=== PATIENT | female | born 1990 | race Caucasian/White ===

== ENCOUNTER 2019-01-27 18:53 | Outpatient (CLI) | payer OTHER ==
[~2019-01-27] VITALS: Ht 154.9 cm; Wt 89.1 kg
[2019-01-27 19:14] VITALS: Ht 154.9 cm; Wt 89.1 kg
[2019-01-27 19:19] VITALS: BP 118/56; PULSE 90; RESP 18
--- NOTE | 2019-01-27 21:04 | PN ---
Triage Information Date/Time January 27, 2019 Reason for visit: DFM Weeks of Gestation 38w 5d /Para 4/3 Diabetes: none Hypertention: none Additional information PMHx: none. PSHx: none. POBHx: x 3. NKDA. Objective Vital Signs Date Temp Pulse Resp B/P (MAP) Pulse Ox O2 O2 Flow FiO2 Time Delivery Rate 01/27/19 98.0 90 18 118/56 Room Air 19:19 (76) Heart Rate: 130's Heart Rate Comments Accels to 170 BPM. No decels. Results/Medications Imaging Results BPP 05/08 with an DARCY of 14.1 cm. VTX. Posterior placenta. EFW 3402 grams. Disposition: Discharge Assessment/Plan A: IUP at 38w 5d. Decreased movement. P:Pt was monitored and given p.o. hydration and now feels the baby moving. She is supposed to be on the NST clinic schedule for twice weekly NST's. Has an appt / at her own clinic. ESTEFANIA GALVAN MD Jan 27, 2019 21:04
--- NOTE | 2019-01-27 21:10 | TRIAGE ---
OB Triage Datetime Report Generated by CPN: 01/27/2019 21:10 Datetime: 01/27/2019 20:39 Contraction Comments: TOCO tracing movement not contraction as pt was sitting up to drink water Comments: pt sitting up drinking water, monitor loss of contact Datetime: 01/27/2019 20:19 Labor Evaluation Frequency: x2/hr Monitor Mode: External Duration (sec)2399: 40-60 Resting Tone [place]: Relaxed Contraction Comments: pt denies feeling any contractions Heart Rate FHR Baseline Rate: 135 Monitor Mode: External US Variability: Moderate 6-25 bpm Accelerations: 15X15 Decelerations: None Category: Category I Pain Assessment Pain Scale: 0 Pain Presence: None/Denies Pain Type: N/A Datetime: 01/27/2019 20:02 Monitor Mode: External Monitor Mode: External US Datetime: 01/27/2019 19:49 Comments: MONITORS TEMPORARILY REMOVED, TABLEAU ADMINISTRATOR AT BEDSIDE PERFORMING ULTRASOUND EXAM Datetime: 01/27/2019 19:19 Temperature Route: Oral Labor Evaluation Frequency: none Monitor Mode: External Duration (sec)2399: 0 Resting Tone [place]: Relaxed Heart Rate FHR Baseline Rate: 130 Monitor Mode: External US Variability: Moderate 6-25 bpm Accelerations: 15X15 Decelerations: Variable Category: Category II Comments: variable x1 Datetime: 01/27/2019 19:10 Pain Assessment Pain Scale: 0 Pain Presence: None/Denies Pain Type: N/A Pain Assessment Comments: pt denies any pain, denies feeling any cramping or contractions Datetime: 01/27/2019 19:00 Assessment Type: Admission Assessment Time of Arrival: 01/27/2019 19:00 EGA: 38.5 Arrived By: Ambulatory Arrived From: Home Chief Complaint: PT CAME IN FROM CLINIC DUE TO DFM Movement: Decreased Contractions: Denies/Absent Rupture of Membranes: Denies Vaginal Bleeding: None Vaginal Discharge: Denies Recent Sexual Intercouse: Denies Abdominal Trauma: Not Applicable Patient Complaints: Other Additional Patient Complaints: Hx of low GISELLA-A _ noncompliant with keeping _ perinatology appts Time Provider Notified: 01/27/2019 19:21 Provider Notified: Roberto Initial Plan: VS, EFM, call OB Maternal Assessment Level of Consciousness: Fully Conscious DTR's/Clonus: DTRs 2+; No Clonus Headache: Denies Blurred Vision: No Respiratory Effort: Unlabored; Regular Rhythm; Equal Expansion Breath Sounds, Left: Clear and Equal Breath Sounds, Right: Clear and Equal Nausea/Vomiting: Denies RUQ Epigastric Pain: Denies Lower Extremities Edema: None Degree: None Upper Extremities Edema: None Degree: None Facial Edema: None Fall Risk Assessment History of Falling: (0) No Secondary Diagnosis: (0) No Ambulatory Aid: (0) Bedrest/Nurse Assist IV Therapy: (0) No Gait: (0) Normal/Bedrest/Immobile Mental Status: (0) Oriented to Own Ability Fall Score: 0 Fall Risk Score Definition: No Risk: No action required Datetime: 01/27/2019 18:55 Stage of : OB Triage
== END 2019-01-27 20:57 | disposition home or self-care (01) ==
LOC: OBT 18:53 → L-D 18:54 → OBT 20:57
PROVIDERS: ATTEND Obstetrics & Gynecology
DX: O36.8130 Decreased fetal movements, third trimester, not applicable or unspecified (principal); Z3A.38 38 weeks gestation of pregnancy
CPT/HCPCS: 36415; 76815; 76818; Z7500; G0463

== ENCOUNTER 2019-02-05 11:39 | Inpatient (IN) | payer OTHER ==
[~2019-02-05] VITALS: Ht 154.9 cm; Wt 90.0 kg
[2019-02-05 12:02] VITALS: BP 99/56; PULSE 94; RESP 19; Ht 154.9 cm; Wt 90.0 kg
--- NOTE | 2019-02-05 14:01 | TRIAGE ---
OB Triage Datetime Report Generated by CPN: 02/05/2019 14:00 Datetime: 02/05/2019 13:53 Vaginal Exam Dilatation (cms): 0.0 Effacement (%): 30 Station: -3 Exam By: A GHUKASAYAN Datetime: 02/05/2019 13:30 Labor Evaluation Frequency: OCCAS Monitor Mode: External Duration (sec)2399: 50-80 Quality: Mild Pattern: Normal: <= 5 Contractions in 10 Minutes Resting Tone [place]: Relaxed Heart Rate FHR Baseline Rate: 135 Monitor Mode: Internal Scalp Electrode FHR Baseline Changes: No Baseline Change Variability: Moderate 6-25 bpm Accelerations: 15X15 Decelerations: None Category: Category I Datetime: 02/05/2019 12:28 Assessment Type: Triage Maternal Assessment Level of Consciousness: Fully Conscious DTR's/Clonus: DTRs 2+; No Clonus Headache: Denies Blurred Vision: No Respiratory Effort: Unlabored; Regular Rhythm; Equal Expansion Breath Sounds, Left: Clear and Equal Breath Sounds, Right: Clear and Equal Nausea/Vomiting: Denies RUQ Epigastric Pain: Denies Lower Extremities Edema: None Degree: None Upper Extremities Edema: None Degree: None Facial Edema: None Fall Risk Assessment History of Falling: (0) No Secondary Diagnosis: (0) No Ambulatory Aid: (0) Bedrest/Nurse Assist IV Therapy: (0) No Gait: (0) Normal/Bedrest/Immobile Mental Status: (0) Oriented to Own Ability Fall Score: 0 Fall Risk Score Definition: No Risk: No action required Datetime: 02/05/2019 12:27 Time of Arrival: 02/05/2019 11:32 EGA: 40.0 Arrived By: Ambulatory Arrived From: Home Chief Complaint: POST DATES Movement: Present Contractions: Denies/Absent Rupture of Membranes: Denies Vaginal Bleeding: None Vaginal Discharge: Denies Recent Sexual Intercouse: Denies Abdominal Trauma: Not Applicable Patient Complaints: Other Time Provider Notified: 02/05/2019 13:53 Provider Notified: DR BROWN Initial Plan: NST BPP EFW Datetime: 02/05/2019 12:22 Labor Evaluation Frequency: OCCAS Monitor Mode: External Duration (sec)2399: 50-90 Quality: Mild Pattern: Normal: <= 5 Contractions in 10 Minutes Resting Tone [place]: Relaxed Heart Rate FHR Baseline Rate: 140 Monitor Mode: External US FHR Baseline Changes: No Baseline Change Variability: Moderate 6-25 bpm Accelerations: 15X15 Decelerations: None Category: Category I Datetime: 02/05/2019 11:47 EGA: 38.5 Datetime: 02/05/2019 11:46 EGA: 39.2 Datetime: 01/27/2019 19:00 EGA: 38.5 Fall Score: 0 Fall Risk Score Definition: No Risk: No action required
[2019-02-05] MEDS ORDERED: PREN-93 PO (14:33)
[2019-02-05] MEDS ORDERED: LIDOCAINE 1% (MPF) 30 ML INJ INJ PRN (15:00)
[2019-02-05] MEDS ORDERED: CARBOPROST 250 MCG INJ IM PRN (15:00)
[2019-02-05] MEDS ORDERED: METHYLERGONOVINE 0.2 MG INJ IM PRN (15:00)
[2019-02-05] MEDS ORDERED: BUTORPHANOL 2 MG INJ IV PRN (15:00)
[2019-02-05] MEDS ORDERED: OXYTOCIN 30 UNITS/LR 500 ML IV PRN (15:00)
[2019-02-05] MEDS ORDERED: IBUPROFEN 600 MG TAB PO PRN (15:00)
[2019-02-05] MEDS ORDERED: MISOPROSTOL 200 MCG TAB PR PRN (15:00)
[2019-02-05] MEDS ORDERED: OXYTOCIN 30 UNITS/LR 500 ML IV SCH ×2 (15:00)
[2019-02-05] MEDS: LACTATED RINGER'S 1,000 ML IV SCH ×3 (15:48→23:41)
[2019-02-05] MEDS: MISOPROSTOL 50 MCG CAPSULE PO SCH ×3 (15:48→23:00)
--- NOTE | 2019-02-05 18:04 | HP ---
Date/Time of Note Date/Time of Note DATE: 02/05/19 TIME: 18:01 OB - History Hx of Present Free Text/Dictation 28-year-old female 4 para 3 at 40 weeks gestation admitted for induction of labor per request Last Menstrual Period: May 01, 2018 Estimated Due Date: February 05, 2019 : 4 Para: 3 Care: Good Care Obstetrical Complications: None Medical Complications: None, Other (LowPAPP-A) Past Family/Social History * Past Medical, Surgical, Family and Obstetric Histories reviewed from chart. Blood Type: O+ Rubella: immune RPR/VDRL: Negative GBS Status: Negative HBsAG: Negative OB Admission Exam Vital Signs Vital Signs Vital Signs Date Temp Pulse Resp B/P (MAP) Pulse Ox O2 O2 Flow FiO2 Time Delivery Rate 02/05/19 98.4 94 19 99/56 (70) Room Air 12:02 Physical Exam HEENT: WNL Heart: Rhythm Normal Lungs: Clear, Equal Abdomen: WNL Extremities: Normal Reflexes: Normal Effacement: 0% Station: -3 Membranes: Intact Heart Rate: 140's Accelerations: Accelerations Present Decelerations: No Decelerations Varibility: Marked Contractions on Admission: None Last 72 hours Lab Results CBC & BMP 02/05/19 14:45 OB Assessment/Plan Reason for admission: induction of labor Other Assessment: 40 weeks gestation Admitted for elective induction Other plan: Use Cytotec for labor induction ESTRELLITA PUGH MD February 05, 2019 18:04
[2019-02-06] MEDS: MISOPROSTOL 50 MCG CAPSULE PO SCH ×5 (03:00→20:46)
[2019-02-06] MEDS: LACTATED RINGER'S 1,000 ML IV SCH ×3 (07:26→23:19)
--- NOTE | 2019-02-06 17:08 | PN ---
Date/Time of Note Date/Time of Note DATE: 02/06/19 TIME: 17:07 OB Subjective Subjective Subjective Patient complained of minimal uterine contractions OB Objective Objective Objective Vital signs are stable in general physical exam is unchanged Cervical dilatation is 1 to 2 cm with slight effacement heart tones are reactive OB Assessment/Plan Reason for admission: induction of labor Other Assessment: Term gestation Other plan: Continue with the last dose of the Cytotec If patient is not three 4 cm by following day will consider Cook's balloon ESTRELLITA PGUH MD February 06, 2019 17:08
[2019-02-07] MEDS ORDERED: MINERAL OIL LIGHT 10 ML VIAL TOP PRN
[2019-02-07] MEDS ORDERED: OXYTOCIN 30 UNITS/LR 500 ML IV SCH (01:00)
[2019-02-07] MEDS: LACTATED RINGER'S 1,000 ML IV SCH ×3 (07:50→19:06)
[2019-02-07] MEDS ORDERED: LACTATED RINGER'S 1,000 ML IV PRN (07:52)
[2019-02-07] MEDS ORDERED: MINERAL OIL LIGHT 10 ML VIAL TOP ONE (08:00)
[2019-02-07] MEDS ORDERED: FENTAnyl 2MCG/ML-ROPIV 0.2% 100 ML ONE (15:09)
--- NOTE | 2019-02-07 15:14 | PREAC ---
Date/Time of Note Date/Time of Note DATE: 02/07/19 TIME: 15:13 Anesthesia Eval and Record Evaluation Time Pre-Procedure Interview DATE: 02/07/19 TIME: 15:13 Age 28 Sex female NPO: 8 hrs Preoperative diagnosis labor pain Planned procedure epidural Past Medical History Past Medical History: None Surgery & Anesthesia Issues No known issue Meds Anticoagulation: No Beta Danilo within 24 hr: No Reason Beta Danilo not given: Pt. not on B-Danilo Reported Medications Vit No.124/Iron/FA ( Vitamin Tablet) 1 Each Tablet, 1 EACH PO DAILY, TAB 02/05/19 Current Medications Lactated Ringer's 1,000 ml @ 125 mls/hr Q8H IV Last administered on 02/07/19at 09:43; Admin Dose 125 MLS/HR; Start 02/05/19 at 14:33 Butorphanol Tartrate (Stadol) 2 mg Q2H PRN IV .PAIN SCALE 6-10; Start 02/05/19 at 15:00 Lidocaine (Xylocaine 1% (Mpf)) 30 ml ONCE PRN INJ .EPISIOTOMY; Start 02/05/19 at 15:00 Oxytocin/Lactated Ringer's 500 ml @ 500 mls/hr ONCE POST IV ; Start 02/05/19 at 15:00 Oxytocin/Lactated Ringer's 500 ml @ 125 mls/hr POST IV ; Start 02/05/19 at 15:00 Ibuprofen (Motrin) 600 mg ONCE PRN PO .PAIN 1-5; Start 02/05/19 at 15:00 Oxytocin/Lactated Ringer's 500 ml @ 0 mls/hr ONCE PRN IV .VAGINAL BLEEDING; Start 02/05/19 at 15:00 Methylergonovine Maleate (Methergine) 0.2 mg ONCE PRN IM .VAGINAL BLEEDING; Start 02/05/19 at 15:00 Carboprost Tromethamine (Hemabate) 250 mcg ONCE PRN IM .VAGINAL BLEEDING; Start 02/05/19 at 15:00 Misoprostol (Cytotec) 1,000 mcg ONCE PRN [place] .VAGINAL BLEEDING; Start 02/05/19 at 15:00 Oxytocin/Lactated Ringer's 500 ml @ 0 mls/hr FOR INDUCTION IV Last administered on 02/07/19at 00:57; Admin Dose 2 MLS/HR; Start 02/07/19 at 01:00 Mineral Oil (Muri-Lube) 20 ml ONCE PRN TOP for delivery; Start 02/07/19 at 00:00 Lactated Ringer's 1,000 ml @ 2,000 mls/hr Q30M PRN IV .ANESTHESIA; Start 02/07 at 07:52 Meds reviewed: Yes Allergies Coded Allergies: No Known Allergy (Verified , 01/27/19) Allergies Reviewed: Yes Labs/Studies Labs Reviewed: Reviewed by anesthesiologist Result Diagram: 02/05/19 1445 test: Positive Studies: ECG (n/a), CXR (n/a) Pre-procedure Exam Last vitals Vital Signs Date Temp Pulse Resp B/P (MAP) Pulse Ox O2 O2 Flow FiO2 Time Delivery Rate 02/05/19 98.4 94 19 99/56 (70) Room Air 12:02 Airway: Adequate mouth opening Mallampati: Mallampati I Teeth: Normal Lung: Normal Heart: Normal ASA Physical Status ASA physical status: 2 Emergency: None Planned Anesthetic Neuraxial: Epidural Pre-operative Attestations Prior to commencing anesthesia and surgery, the patient was re-evaluated, there was verification of: *The patient's identity *The results of appropriate recent lab work and preoperative vital signs *The above evaluation not changing prior to induction *Anesthetic plan, risk benefits, alternative and complications discussed with patient/family; questions answered; patient/family understands, accepts and wishes to proceed. MARCO GROSSMAN MD February 07, 2019 15:14
[2019-02-07] MEDS ORDERED: DIPHENHYDRAMINE 50 MG INJ IV PRN (17:30)
[2019-02-07] MEDS ORDERED: FENTAnyl 2MCG/ML-ROPIV 0.2% 100 ML BAG EPI SCH (17:30)
[2019-02-07] MEDS ORDERED: NALOXONE (0.4 MG/ML) INJ IV PRN (17:30)
[2019-02-07] MEDS ORDERED: ONDANSETRON 4 MG INJ IV PRN (17:30)
--- NOTE | 2019-02-07 20:21 | LDN ---
Date/Time of Note Date/Time of Note DATE: 02/07/19 TIME: 20:20 Delivery Summary Normal spontaneous vaginal delivery of a viable over intact perineum Weeks of Gestation 40 weeks and 2 days Placenta Delivered: Spontaneously, Intact & Complete Meconium: none Episiotomy: No Perineal laceration: 0 Anesthesia type: Epidural Estimated blood loss: 400 Sponge & Needle done & correct: Yes All needle counts correct: Yes Any foreign bodies felt in the: No Infant Delivery Information Sex Infant Sex: female Apgars 1 Minute: 9 5 Minute: 9 Suctioning Delee suction performed: No Umbilical Cord Umbilical cord with: 3 Vessels Cord presentations: no nuchal cord Cord Blood was obtained: Yes Mother & Baby Disposition Disposition Mom & Baby to Maternity; Good: Yes (Mother and baby were recovered in good condition) Mom transferred to: Other (Maternity) Baby to NICU: No ESTRELLITA PUGH MD February 07, 2019 20:21
[2019-02-07] MEDS ORDERED: ACETAMINOPHEN 500 MG TAB PO STA (20:22)
[2019-02-07] MEDS ORDERED: KETOROLAC 30 MG INJ IV STA (20:22)
[2019-02-07] MEDS: LACTATED RINGER'S 1,000 ML IV* SCH (21:48)
[2019-02-07 22:00] VITALS: BP 116/68; PULSE 75; RESP 17
[2019-02-07] MEDS ORDERED: WITCH HAZEL/GLYCERIN PAD PR PRN (22:00)
[2019-02-07] MEDS ORDERED: DIBUCAINE 1% 30 GM OINT TOP PRN (22:00)
[2019-02-07] MEDS ORDERED: MISOPROSTOL 200 MCG TAB PR PRN (22:00)
[2019-02-07] MEDS ORDERED: BENZOCAINE 20% 56 ML SPRAY TOP PRN (22:00)
[2019-02-07] MEDS ORDERED: OXYTOCIN 30 UNITS/LR 500 ML IV PRN (22:00)
[2019-02-07] MEDS ORDERED: ZOLPIDEM 5 MG TAB PO PRN (22:00)
[2019-02-07] MEDS ORDERED: HYDROCODONE/APAP (5/325) TAB PO PRN ×2 (22:00)
[2019-02-07] MEDS ORDERED: METHYLERGONOVINE 0.2 MG INJ IM PRN (22:00)
[2019-02-07] MEDS ORDERED: LANOLIN HPA 1 PKT TOP PRN (22:00)
[2019-02-07] MEDS ORDERED: CARBOPROST 250 MCG INJ IM PRN (22:00)
[2019-02-07] MEDS: IBUPROFEN 600 MG TAB PO SCH (23:33)
[2019-02-07] MEDS: CEPHALEXIN 500 MG CAP PO SCH (23:33)
[2019-02-08 03:00] VITALS: BP 96/53; PULSE 69; RESP 20
[2019-02-08] MEDS: CEPHALEXIN 500 MG CAP PO SCH ×4 (05:43→23:32)
[2019-02-08] MEDS: IBUPROFEN 600 MG TAB PO SCH ×4 (05:44→23:32)
[2019-02-08] MEDS: LACTATED RINGER'S 1,000 ML IV* SCH (05:48)
[2019-02-08 07:40] VITALS: BP 102/61; PULSE 67; RESP 18
[2019-02-08] MEDS: SENNA/DOCUSATE NA (8.6MG/50MG) TAB PO SCH ×2 (09:30→20:53)
[2019-02-08] MEDS: MAGNESIUM HYDROXIDE 30ML CUP PO SCH ×2 (09:30→20:53)
--- NOTE | 2019-02-08 12:00 | DS ---
Date/Time of Note Date/Time of Note Home today or next DATE: 02/08/19 TIME: 11:59 Obstetrical Discharge Record Final Diagnosis Final Diagnosis: Term delivered Other Final Diagnosis Status post vaginal delivery Vaginal Delivery Obstetrical Delivery: Spontaneous Complications Augmentation: Yes Induction: Yes Condition on Discharge Physical Assessment Last Vitals: See nurse's notes Voiding: Yes Bowel Movement: Yes Breast: Soft, non-tender, Filling Fundus: Firm Abdomen and Incision: Abdomen is soft with present bowel sounds and fundus is firm below bellybutton Episiotomy: Perineum is clean Calf Tenderness: No Patient Condition: Good ESTRELLITA PUGH MD February 08, 2019 12:00
--- NOTE | 2019-02-08 12:01 | PD.PPDC ---
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 Provider Information Physician Information 28-year-old female had vaginal delivery Diagnosis [id number] Final Diagnosis: Onmmc2g Status post vaginal delivery Condition [id number] Patient Condition: Ogrob5t Good Diet [id number] Diet: Ohjpc2x Resume Regular Diet Activity/Restrictions [id number] Activity: [id number] Normal Activity May Shower Eelru2Pv Restrictions: Rhwsp0b Nothing in the Vagina [id number] Return to Work or School: Djulk3s Mar 24, 2019 Follow-up Follow-up with Physician: 2, 4, Week/Weeks (In clinic) Return to clinic for [id number] OB Instructions: [id number] Breast Tenderness Depression Comment: Pelvic rest for 6 weeks ESTRELLITA PUGH MD February 08, 2019 12:01
[2019-02-08] MEDS ORDERED: IBUP-1542 PO (12:02)
[2019-02-08 15:46] VITALS: BP 144/86; PULSE 63; RESP 18
[2019-02-08 20:00] VITALS: BP 119/68; PULSE 68; RESP 19
[2019-02-09 03:20] VITALS: BP 115/68; PULSE 68; RESP 20
[2019-02-09] MEDS: CEPHALEXIN 500 MG CAP PO SCH (05:24)
[2019-02-09] MEDS: IBUPROFEN 600 MG TAB PO SCH (05:24)
[2019-02-09 07:30] VITALS: BP 124/83; PULSE 54; RESP 18
[2019-02-09] MEDS ORDERED: MEASLES,MUMPS,RUBELLA VACCINE INJ SC* ONE (09:00)
[2019-02-09] MEDS ORDERED: DIPHTH/TET/ACEL PERTUSS (ADULT) 0.5 ML VIAL IM* ONE (09:00)
[2019-02-09] MEDS ORDERED: VARICELLA VACCINE LIVE/PF 1,350 UNIT/0.5 ML ML SC* ONE (09:00)
[2019-02-09] MEDS: MAGNESIUM HYDROXIDE 30ML CUP PO SCH (09:34)
[2019-02-09] MEDS: SENNA/DOCUSATE NA (8.6MG/50MG) TAB PO SCH (09:34)
--- NOTE | 2019-02-10 06:38 | PAC ---
Date/Time of Note Date/Time of Note DATE: TIME: 06:38 Post-Anesthesia Notes Post-Anesthesia Note Last documented vital signs Vital Signs Date Temp Pulse Resp B/P (MAP) Pulse Ox O2 O2 Flow FiO2 Time Delivery Rate 02/09/19 98.0 54 18 124/83 99 Room Air 07:30 (97) Activity: WNL Respiratory function: WNL Cardiovascular function: WNL Mental status: Baseline Pain reasonably controlled: Yes Hydration appropriate: Yes Nausea/Vomiting absent: No MARCO GROSSMAN MD February 10, 2019 06:38
--- NOTE | 2019-02-10 11:29 | DELSUM ---
Delivery Summary A-C Datetime Report Generated by CPN: 02/10/2019 11:29 DELIVERY PERSONNEL E Merchant: Gianna Singh MATERNAL INFORMATION Delivery Anesthesia: Epidural Medications in Delivery: 30 UNIT PITOCIN IN 500ML LR Delivery QBL (ml): 400 Placenta Cultured: No Maternal Complications: Other RN Comments: post dates induction, + marijuana, multip w hx of macro babies LABOR SUMMARY EDC: 02/05/2019 00:00 No. Babies in Womb: 1 Attempted: No Labor Anesthesia: Epidural LABOR INFORMATION Reason for Induction: Postterm Onset of Labor: 02/07/2019 01:00 Complete Dilatation: 02/07/2019 19:52 Cervical Ripening Agents: Cytotec @ Oxytocin: Induction Group B Beta Strep: Negative Antibiotics # of Doses: 0 Steroids Given: None Reason Steroids Not Administered: Not Applicable MEMBRANES Membranes Rupture Method: Artificial Rupture of Membranes: 02/07/2019 14:44 Length of Rupture (hr): 5.28 Amniotic Fluid Color: Clear Amniotic Fluid Amount: Copious Amniotic Fluid Odor: Normal STAGES OF LABOR Stage 1 hr: 18 Stage 1 min: 52 Stage 2 hr: 0 Stage 2 min: 9 Stage 3 hr: 0 Stage 3 min: 3 Total Time in Labor hr: 19 Total Time in Labor min: 4 VAGINAL DELIVERY Episiotomy: None Laceration Extension: N/A Laceration Type: None Laceration Repair: Not Applicable Initial Vag Sponge Count: 10 Final Vag Sponge Count: 10 Initial Vag Sharps Count: 1 Final Vag Sharps Count: 1 Sponge Count Correct: Yes; Vaginal Sweep Performed Sharps Count Correct: Yes BABY A INFORMATION Delivery Date/Time: 02/07/2019 20:01 Method of Delivery: Vaginal Born in Route : No : N/A Forceps: N/A Vacuum Extraction: N/A Shoulder Dystocia : N/A SHOULDER DYSTOCIA BABY A Delivery Date/Time: 02/07/2019 20:01 PRESENTATION/POSITION BABY A Presentation: Cephalic Cephalic Presentation: Vertex Vertex Position: Left Occipital Anterior Breech Presentation: N/A PLACENTA INFORMATION BABY A Placenta Delivery Time : 02/07/2019 20:04 Placenta Method of Delivery: Spontaneous Placenta Status: Delivered SCORES BABY A Heart Rate 1 min: >100 bpm Resp Effort 1 min: Good Cry Reflex Irritability 1 min: Cough/Sneeze/Pulls Away Muscle Tone 1 min: Active Motion Color 1 min: Body Tracy, Extremit Blue Resuscitation Effort 1 min: Tactile Stimulation SCORE 1 MIN: 9 Heart Rate 5 min: >100 bpm Resp Effort 5 min: Good Cry Reflex Irritability 5 min: Cough/Sneeze/Pulls Away Muscle Tone 5 min: Active Motion Color 5 min: Body Tracy, Extremit Blue Resuscitation Effort 5 min: Tactile Stimulation SCORE 5 MIN: 9 INFANT INFORMATION BABY A Gestational Age at Delivery: 40.2 Gestational Status: Full Term- 39- 40.6 Weeks Outcome : Liveborn Infant Condition : Stable Infant Sex: Female IDENTIFICATION/MEDS BABY A ID Band Number: [id number] ID Band Location: Right Leg; Left Arm Sensor Applied: Yes Sensor Number: [id number] Sensor Location : Cord Clamp Vitamin K Given : Not Given Erythromycin Given: Not Given WEIGHT/LENGTH BABY A Birthweight (gm): 4320 Weight (lb): 9 Infant Weight (oz): 8 Length (in): 20.25 Infant Length (cm): 51.44 CORD INFORMATION BABY A No. Cord Vessels: 3 Nuchal Cord : N/A Cord Blood Taken: Yes Suction: Mouth; Nose ASSESSMENT BABY A Complications: Multiple Variable Decels Infant Complications- Other: + marijuana, post dates Physical Findings at Delivery: Caput Succedaneum Respirations: Appears Normal Sales Assistant Displays/ALS Called : Yes Infant Care By: BROCK POLK Transferred To: Remains with Mother
== END 2019-02-09 11:20 | disposition home or self-care (01) | DRG 807 ==
LOC: OBT 11:39 → L-D 11:40 → OBT 14:10 → L-D 14:10 → PP1 02-07 21:36
PROVIDERS: ADMIT Obstetrics & Gynecology; ATTEND Obstetrics & Gynecology
PROC: 3E033VJ Introduction of Other Hormone into Peripheral Vein, Percutaneous Approach (ICD-10-PCS; 2019-02-05)
PROC: 10E0XZZ Delivery of Products of Conception, External Approach (ICD-10-PCS; principal; 2019-02-07)
DX: O80 Encounter for full-term uncomplicated delivery (principal); Z37.0 Single live birth; Z3A.40 40 weeks gestation of pregnancy
CPT/HCPCS: 62322; 76815; 76818; 80307; 85025; 85610; 85730; 86592; 86850; 86900; 86901; 87340; G0463; J1885; J2590; J3010; J7120